=== PATIENT | female | born 1985 | race Native Hawaiian/Other Pacific Islander ===

== ENCOUNTER 2019-09-05 15:58 | Emergency (ER) | payer OTHER ==
[2019-09-05 16:24] LABS: BASOPHILS % (AUTO) 0.3 %; EOSINOPHILS # (AUTO) 0.3 10^3/uL (0.0-0.7); EOSINOPHILS % (AUTO) 3.2 %; HGB - HEMOGLOBIN 14.1 g/dL (12.0-16.0); LYMPHOCYTES # (AUTO) 2.2 10^3/uL (1.5-3.5); LYMPHOCYTES % (AUTO) 24.6 %; MEAN CORPUSCULAR HEMOGLOBIN 31.9 pg (27.0-31.0); MEAN CORPUSCULAR HGB CONC 34.6 g/dL (32.0-36.0); MEAN CORPUSCULAR VOLUME 92.3 fL (81.0-99.0); MEAN PLATELET VOLUME 10.3 fL (7.9-10.8); MONOCYTES # (AUTO) 0.6 10^3/uL (0.0-1.0); MONOCYTES % (AUTO) 6.7 %; NEUTROPHILS # (AUTO) 5.8 10^3/uL (1.5-6.6); NEUTROPHILS % (AUTO) 64.9 %; PLT - PLATELET COUNT 255 10^3/uL (130-450); RED BLOOD COUNT 4.42 10^6/uL (4.20-5.40); RED CELL DISTRIBUTION WIDTH 12.1 % (12.0-15.0)
[2019-09-05 16:38] LABS: ALBUMIN 4.1 g/dL (3.2-5.5); ALBUMIN/GLOBULIN RATIO 1.3 (1.0-2.2); BILIRUBIN,TOTAL 1.1 mg/dL (0.2-1.0); CALCIUM 8.9 mg/dL (8.5-10.3); CREATININE 0.9 mg/dL (0.4-1.0); TOTAL PROTEIN 7.2 g/dL (6.7-8.2)
--- NOTE | 2019-09-05 16:47 | ED Physician Documentation ---
History of Present Illness - Stated complaint Stated Complaint: Vaginal bleeding - Chief complaint Chief Complaint: Abd Pain - History obtained from History obtained from: Patient - History of Present Illness Timing: How many days ago (3) Pain level max: 0 Pain level now: 0 - Additonal information Additional information: 34-year-old female 2 para 1 estimated 7 weeks presents to the emergency department with mild vaginal bleeding for the past 2 to 3 days. Nothing makes it better or worse. No pelvic pain. No abdominal pain. No vomiting. No diarrhea. No fever. Review of Systems Constitutional: denies: Fever, Chills GI: denies: Vomiting, Diarrhea Skin: denies: Rash Musculoskeletal: denies: Neck pain, Back pain Neurologic: denies: Head injury PD PAST MEDICAL HISTORY - Past Medical History Past Medical History: No - Past Surgical History Past Surgical History: No - Allergies Allergies/Adverse Reactions: Allergies Allergy/AdvReac Type Severity Reaction Status Date / Time No Known Drug Allergies Allergy Verified 09/05/19 16:04 - Living Situation Living Situation: reports: With family Living Arrangement: reports: At home - Social History Does the pt smoke?: No Does the pt drink ETOH?: No Does the pt have substance abuse?: No PD ED PE NORMAL - Vitals Vital signs reviewed: Yes - General General: Alert and oriented X 3, No acute distress - HEENT HEENT: Moist mucous membranes - Neck Neck: Supple, no meningeal sign - Cardiac Cardiac: RRR, Strong equal pulses - Respiratory Respiratory: No respiratory distress, Clear bilaterally - Abdomen Abdomen: Soft, Non tender, Non distended - Back Back: No CVA TTP, No spinal TTP - Derm Derm: Warm and dry - Extremities Extremities: No edema - Neuro Neuro: Alert and oriented X 3 Results - Vitals Vitals: Vital Signs - 24 hr 09/05/19 09/05/19 09/05/19 16:05 16:07 18:07 Temperature 36.6 C Heart Rate 72 72 72 Respiratory 16 16 14 Rate Blood Pressure 112/61 126/74 118/68 O2 Saturation 99 99 98 09/05/19 20:00 Temperature Heart Rate 69 Respiratory 18 Rate Blood Pressure 131/73 H O2 Saturation 97 Oxygen O2 Source Room air - Labs Labs: Laboratory Tests 09/05/19 09/05/19 09/05/19 16:18 16:18 16:18 WBC 9.0 RBC 4.42 Hgb 14.1 Hct 40.8 MCV 92.3 MCH 31.9 H MCHC 34.6 RDW 12.1 Plt Count 255 MPV 10.3 Neut # (Auto) 5.8 Lymph # (Auto) 2.2 Blair # (Auto) 0.6 Eos # (Auto) 0.3 Baso # (Auto) 0.0 Absolute Nucleated RBC 0.00 Nucleated RBC % 0.0 Sodium 137 Potassium 3.8 Chloride 101 Carbon Dioxide 27 Anion Gap 9.0 BUN 11 Creatinine 0.9 Estimated GFR (MDRD) 73 L Glucose 113 H Calcium 8.9 Total Bilirubin 1.1 H AST 21 ALT 19 Alkaline Phosphatase 67 Total Protein 7.2 Albumin 4.1 Globulin 3.1 Albumin/Globulin Ratio 1.3 Lipase 45 HCG, Quant 4153.00 Urine Color Urine Clarity Urine pH Ur Specific [place] Urine Protein Urine Glucose (UA) Urine Ketones Urine Occult Blood Urine Nitrite Urine Bilirubin Urine Urobilinogen Ur Leukocyte Esterase Urine RBC Urine WBC Ur Squamous Epith Cells Urine Bacteria Ur Microscopic Review Urine Culture Comments Blood Type Blood Type Recheck 09/05/19 09/05/19 09/05/19 16:18 16:31 19:11 WBC RBC Hgb Hct MCV MCH MCHC RDW Plt Count MPV Neut # (Auto) Lymph # (Auto) Blair # (Auto) Eos # (Auto) Baso # (Auto) Absolute Nucleated RBC Nucleated RBC % Sodium Potassium Chloride Carbon Dioxide Anion Gap BUN Creatinine Estimated GFR (MDRD) Glucose Calcium Total Bilirubin AST ALT Alkaline Phosphatase Total Protein Albumin Globulin Albumin/Globulin Ratio Lipase HCG, Quant Urine Color YELLOW Urine Clarity HAZY Urine pH 7.0 Ur Specific [place] 1.015 Urine Protein NEGATIVE Urine Glucose (UA) NEGATIVE Urine Ketones NEGATIVE Urine Occult Blood LARGE H Urine Nitrite NEGATIVE Urine Bilirubin NEGATIVE Urine Urobilinogen 0.2 (NORMAL) Ur Leukocyte Esterase NEGATIVE Urine RBC TNTC H Urine WBC 0-3 Ur Squamous Epith Cells FEW Squamous Urine Bacteria None Seen Ur Microscopic Review INDICATED Urine Culture Comments NOT INDICATED Blood Type B POSITIVE Blood Type Recheck B POSITIVE - Rads (name of study) OB US Radiology: Prelim report reviewed, EMP read contemporaneously, See rad report (1. A single living IUP with the estimated gestational age 6 weeks 3 days, corresponding to ultrasound [facility] 04/27/2020. 2. Small subchorionic bleed is present measuring 8 x 5 x 9 mm. 3. A trace amount of fluid in the endocervical canal. ) PD MEDICAL DECISION MAKING - ED course Complexity details: reviewed results, re-evaluated patient, considered differential, d/w patient ED course: 34-year-old female presents to the emergency department with what appears to be a threatened . Her hCG is low, but there is a single living IUP with an EGA of 6 weeks and 3 days. heart rate present as well. We will have her follow-up closely with her doctor for further care. She will need repeat hCG and likely a repeat ultrasound. Patient counseled regarding signs and symptoms for which I believe and urgent re-evaluation would be necessary. Patient with good understanding of and agreement to plan and is comfortable going home at this time This document was made in part using voice recognition software. While efforts are made to proofread this document, sound alike and grammatical errors may occur. Departure - Departure Disposition: 01 Home, Self Care Clinical Impression: Vaginal bleeding affecting early Condition: Good Instructions: ED Miscarriage Poss Follow-Up: MARY GOMEZ [Primary Care Provider] - Within 3 Days Comments: [facility] should [facility] with [facility] base on [place] to have a repeat hCG done either Saturday or Saturday. Your hCG is approximately 4100 today. Your pelvic ultrasound report is at the end of these instructions. Return if you worsen. 1. A single living IUP with the estimated gestational age 6 weeks 3 days, corresponding to ultrasound [facility] 04/27/2020. 2. Small subchorionic bleed is present measuring 8 x 5 x 9 mm. 3. A trace amount of fluid in the endocervical canal.
--- NOTE | 2019-09-05 18:51 | Ultrasound Report ---
PROCEDURE: OB First Trimester INDICATIONS: 7 weeks preg, vb OUTSIDE/PRIOR DATING DATA: Last menstrual period (LMP): 07/13/2019. LMP-based estimated date of delivery ([facility]): 04/18/2020. First dating scan (date and location): 09/05/2019 at . Estimated date of delivery ([facility]) from first dating scan: 04/27/2020. TECHNIQUE: Real-time scanning was performed of the fetus and maternal pelvic organs, with image documentation. COMPARISON: None. FINDINGS: There is a single living intrauterine gestation with the estimated gestational age 6 weeks 3 days. cardiac activity is present with heart rate 109 BPM. Small subchorionic bleed is present measuring 8 x 5 x 9 mm. There is a trace amount of fluid in the cervix. Gestational bleed is present. Measurement variability in dating: +/- 4 weeks by LMP, +/- 7 days by m paulie sac diameter (use before 6 weeks gestation if crown-rump length not able to be measured), +/- 5 d ays by crown-rump length (6-12 weeks gestation). Maternal organs: Left ovary is obscured by overlying bowel gas. Right ovary appears normal. Limited images through the kidneys demonstrate no hydronephrosis. IMPRESSION: 1. A single living IUP with the estimated gestational age 6 weeks 3 days, corresponding to ultrasound [facility] 04/27/2020. 2. Small subchorionic bleed is present measuring 8 x 5 x 9 mm. 3. A trace amount of fluid in the endocervical canal. Reviewed by: Trye Lozoya MD on 09/05/2019 6:50 PM PDT Approved by: Trey Lozoya MD on 09/05/2019 6:50 PM PDT Station ID: [id number]
[2019-09-05 20:09] LABS: BILIRUBIN,URINE NEGATIVE (NEGATIVE); GLUCOSE, URINE (UA) NEGATIVE (NEGATIVE); KETONES,URINE (UA) NEGATIVE (NEGATIVE); LEUKOCYTE ESTERASE, URINE NEGATIVE (NEGATIVE); NITRITE,URINE NEGATIVE (NEGATIVE); OCCULT BLOOD,URINE LARGE (NEGATIVE); PROTEIN,URINE NEGATIVE (NEGATIVE); UROBILINOGEN,URINE 0.2 (NORMAL) E.U./dL (NORMAL)
[2019-09-05 20:11] VITALS: BP 131/73
[2019-09-05 20:15] LABS: CLARITY,URINE HAZY (CLEAR)
[2019-09-05 20:20] LABS: RBC,URINE TNTC /HPF (0-5); SQUAMOUS EPITHELIAL CELL,UR FEW Squamous (<= Few)
[2019-09-05 20:21] LABS: BACTERIA,URINE None Seen /HPF (None Seen)
--- NOTE | 2019-09-06 10:07 | Ultrasound Report ---
PROCEDURE: OB Transvaginal INDICATIONS: 7 weeks preg, vb OUTSIDE/PRIOR DATING DATA: Last menstrual period (LMP): 07/13/2019. LMP-based estimated date of delivery ([facility]): 04/18/2020. First dating scan (date and location): 09/05/2019. Estimated date of delivery ([facility]) from first dating scan: 04/27/2020. TECHNIQUE: Real-time scanning was performed of the fetus and maternal pelvic organs, with image documentation. COMPARISON: OB first trimester ultrasound 09/05/2019 FINDINGS: No change to OB first trimester ultrasound 09/05/2019. IMPRESSION: Please refer to OB first trimester ultrasound 09/05/2019. Reviewed by: Rayna Mckeon MD on 09/06/2019 10:05 AM PDT Approved by: Rayna Mckeon MD on 09/06/2019 10:05 AM PDT Station ID: [id number]
== END 2019-09-05 20:27 | disposition home or self-care (01) ==
LOC: ED 15:58
DX: O46.91 Antepartum hemorrhage, unspecified, first trimester (principal); Z3A.01 Less than 8 weeks gestation of pregnancy
CPT/HCPCS: 36415; 76801; 76817; 80053; 81001; 81003; 83690; 84702; 85025; 86900; 86901; 87086; 99284